=== PATIENT | female | born 1945 | race Caucasian/White ===

== ENCOUNTER 2017-09-08 19:37 | Emergency (ER) | payer OTHER ==
[2017-09-08] MEDS: SOD CHLORIDE 0.9% 1,000 ML IV (21:10)
[2017-09-08] MEDS: ONDANSETRON 4 MG INJ IV (21:10)
[2017-09-08] MEDS: ENALAPRILAT 1.25 MG INJ IV (21:10)
[2017-09-08 21:14] LABS: ADD MAN DIFF? NO
[2017-09-08 21:17] LABS: WHITE BLOOD COUNT 7.8 10^3/ul (4.8-10.8)
[2017-09-08 21:17] LABS: BASOPHIL # 0.1 10^3/ul (0.0-0.1); BASOPHILS % 0.6 % (0.0-2.0); EOSINOPHILS # 0.1 10^3/ul (0.0-0.5); EOSINOPHILS % 1.7 % (0.0-7.0); HEMATOCRIT 39.9 % (37.0-47.0); HEMOGLOBIN 14.1 g/dl (12.0-16.0); LYMPHOCYTES # 2.6 10^3/ul (0.8-2.9); LYMPHOCYTES % 33.5 % (15.0-51.0); MEAN CORPUSCULAR HGB CONC 35.3 g/dl (32.0-37.0); MEAN CORPUSCULAR VOLUME 90.5 fl (82.0-101.0); MONOCYTE # 0.7 10^3/ul (0.3-0.9); MONOCYTES % 8.5 % (0.0-11.0); NEUTROPHIL # 4.3 10^3/ul (1.6-7.5); NEUTROPHILS % 55.3 % (39.0-77.0); PLATELET COUNT 280 10^3/UL (140-415); RED BLOOD COUNT 4.41 10^6/ul (4.20-5.40); RED CELL DISTRIBUTION WIDTH 12.5 % (11.5-14.5)
[2017-09-08 21:28] LABS: ADD UMIC YES; UR ASCORBIC ACID NEGATIVE (NEGATIVE); UR BACTERIA FEW /HPF (NONE SEEN); UR BILIRUBIN (Dip) NEGATIVE (NEGATIVE); UR BLOOD (Dip) 2+ mg/dL (NEGATIVE); UR CLARITY CLEAR (CLEAR); UR COLOR STRAW (YELLOW); UR GLUCOSE (Dip) NEGATIVE (NEGATIVE); UR KETONES (Dip) NEGATIVE (NEGATIVE); UR LEUKOCYTE ESTERASE (Dip) TRACE Leu/ul (NEGATIVE); UR NITRITE (Dip) NEGATIVE (NEGATIVE); UR RBC 2 /HPF (0-5); UR SPECIFIC GRAVITY (Dip) 1.008 (1.003-1.030); UR TOTAL PROTEIN (Dip) NEGATIVE (NEGATIVE); UR UROBILINOGEN (Dip) NEGATIVE (NEGATIVE); UR WBC 4 /HPF (0-5)
[2017-09-08 21:44] LABS: ALANINE AMINOTRANSFERASE 31 IU/L (13-69); ALBUMIN 4.3 g/dl (3.3-4.9); ALKALINE PHOSPHATASE 130 IU/L (42-121); ANION GAP 13 (8-16); ASPARTATE AMINO TRANSFERASE 34 IU/L (15-46); BILIRUBIN,INDIRECT 0.3 mg/dl (0-1.1); BILIRUBIN,TOTAL 0.3 mg/dl (0.2-1.3); BLOOD UREA NITROGEN 14 mg/dl (7-20); CALCIUM 9.6 mg/dl (8.4-10.2); CARBON DIOXIDE 29 mmol/L (21-31); CHLORIDE 106 mmol/L (97-110); CREATININE 0.53 mg/dl (0.44-1.00); GLUCOSE 155 mg/dl (70-220); LIPASE 121 U/L (23-300); POTASSIUM 3.8 mmol/L (3.5-5.1); SODIUM 144 mmol/L (135-144); TOTAL PROTEIN 8.2 g/dl (6.1-8.1)
[2017-09-08 22:06] LABS: TROPONIN-I < 0.012 ng/ml (0.00-0.12)
[2017-09-08] MEDS: KETOROLAC 15 MG INJ IV (22:21)
== END 2017-09-08 23:04 | disposition home or self-care (01) ==
LOC: E/R 23:04
DX: I10 Essential (primary) hypertension (principal); E11.9 Type 2 diabetes mellitus without complications
CPT/HCPCS: 36415; 80053; 81001; 83690; 84484; 85025; 93005; 96374; 96375; 99284-25